=== PATIENT | female | born 2000 | race Hispanic/Latino ===

== ENCOUNTER 2025-02-18 17:35 | Emergency (ER) | payer BC ==
[~2025-02-18] VITALS: Ht 154.9 cm; Wt 63.5 kg
--- NOTE | 2025-02-18 17:48 | ERN ---
General Chief Complaint: Vaginal Bleeding Stated Complaint: 7WKS BLEEDING Time Seen by MD: 17:37 Time Seen by Midlevel: 17:37 Source: patient History of Present Illness Initial Comments The patient is a 24-year-old female with no significant past medical history presenting to the emergency department with light vaginal spotting that started approximately two days ago. The patient reports approximately seven weeks at this time based on her last menstrual period. She is followed by Dr. Joaquín Walsh and has an ultrasound scheduled in a couple of days. She states that for the last 48 hours there has been light vaginal bleeding with wiping. No large clots or heavy flow has been reported. Denies any abdominal cramping, dysuria, or any other symptoms at this time. Patient is a A0. Allergies: Coded Allergies: No Known Drug Allergies (Unverified Allergy, Unknown, 02/18/25) Past Medical History Past Medical History: No Pertinent History Past Surgical History: None Female( History) LMP: Dec 22, 2024 : 1 Para: 0 ROS Dictation CONSTITUTIONAL: Negative except for HPI HEAD/FACE: Negative except for HPI EENT: Negative except for HPI RESPIRATORY: Negative except for HPI GASTROINTESTINAL/ABDOMINAL: Negative except for HPI GENITOURINARY: Negative except for HPI MUSCULOSKELETAL: Negative except for HPI INTEGUMENTARY: Negative except for HPI NEUROLOGICAL/PSYCH: Negative except for HPI HEMATOLOGIC/LYMPHATIC: Negative except for HPI All Systems Negative, Except as noted above. 13 point review of systems assessed and all negative except for above. Physical Exam Physical Exam Dictation Vital Signs reviewed General Appearance: Alert, oriented x 3, no acute distress, well developed, nourished. Head and Face: non-traumatic. Eyes: PERRL, pink conjunctivas, eyelid no trauma, anterior chamber with arcus senilis. Ears: Pinnas intact and no signs of trauma or erythema ear canals clear and no discharge TM no erythema Nose: No discharge, no bleeding. Oropharynx: Mouth normal, tongue pink, pharynx clear,no erythema, tonsils no exudates, no abscesses noted, mucous membrane moist Neck: Supple, non-tender, no thyromegaly, no masses, no JVD, no bruits Breast:Deferred Chest:No tenderness, no crepitus, no paradoxical movement, no retractions Lungs:Clear, well-ventilated, symmetric, no rales, no wheezing, no rhonchi, no stridor, good breath sounds bilaterally Heart: Regular rate, regular rhythm, no murmur, no gallops Vascular: no peripheral edema, Abdomen: Soft, positive bowel sounds, nondistended, no guarding, nontender, no rebound, no masses no hepatomegaly, no splenomegaly, no Awad's sign, no hernias. Rectal: Deferred Genital: Deferred Neurological: Normal speech, motor function intact, sensory function intact Musculoskeletal: Neck nontender, full range of motion, back nontender, full range of motion, Extremities: nontender, full range of motion Skin: Color pink, dry, no turgor, no rash, no lacerations, no abrasions, no contusions. Lymphatic: Deferred Results Laboratory and Microbiology Lab and Micro Result Laboratory Tests Test 02/18/25 17:50 02/18/25 18:33 Urine Color COLORLESS (YELLOW) Urine Appearance CLEAR (CLEAR) Urine pH 6.0 (5.0-8.0) Urine Specific [place] 1.009 (1.001-1.031) Urine Protein NEGATIVE mg/dL (NEGATIVE) Urine Glucose (UA) NEGATIVE mg/dL (NEGATIVE) Urine Ketones NEGATIVE mg/dL (NEGATIVE) Urine Occult Blood NEGATIVE (NEGATIVE) Urine Nitrate NEGATIVE (NEGATIVE) Urine Bilirubin NEGATIVE mg/dL (NEGATIVE) Urine Urobilinogen 0.2 mg/dL (0.2-1.0) Urine Leukocyte Esterase NEGATIVE Mikey/uL White Blood Count 8.9 K/uL (4.8-10.8) Red Blood Count 4.04 MIL/uL (4.00-5.50) Hemoglobin 11.8 g/dL (12.0-16.0) L Hematocrit 34.6 % (36-48) L Mean Corpuscular Volume 85.6 fL (79-99) Mean Corpuscular Hemoglobin 29.2 pg (27.0-33.0) Mean Corpuscular Hemoglobin Concent 34.1 g/dL (32.0-36.0) Red Cell Distribution Width 12.5 % (11.0-15.5) Platelet Count 206 K/uL (130-400) Mean Platelet Volume 9.7 fL (7.5-10.5) Immature Granulocyte % (Auto) 0.4 % (0-1) Neutrophils (%) (Auto) 68.8 % (40.0-77.0) Lymphocytes (%) (Auto) 19.9 % (21.0-51.0) L Monocytes (%) (Auto) 9.3 % (3.0-13.0) Eosinophils (%) (Auto) 1.0 % (0.0-8.0) Basophils (%) (Auto) 0.6 % (0.0-5.0) Neutrophils # (Auto) 6.1 K/uL (1.8-7.7) Lymphocytes # (Auto) 1.8 K/uL (1.0-4.8) Monocytes # (Auto) 0.8 K/uL (0.1-1.0) Eosinophils # (Auto) 0.09 K/uL (0.00-0.70) Basophils # (Auto) 0.05 K/uL (0.00-0.20) Absolute Immature Granulocyte (auto 0.04 K/uL (0-1) Nucleated Red Blood Cells 0.0 % (0.0-0.19) Sodium Level 138 mmol/L (136-145) Potassium Level 3.7 mmol/L (3.5-5.1) Chloride Level 102 mmol/L (101-111) Carbon Dioxide Level 24 mmol/L (21-32) Blood Urea Nitrogen 9 mg/dL (7-18) Creatinine 0.4 mg/dL (0.5-1.0) L Glomerular Filtration Rate Calc 143 mL/min (>90) Random Glucose 93 mg/dL (70-105) Total Calcium 8.9 mg/dL (8.5-10.1) Human Chorionic Gonadotropin, Quant 439229 mIU/mL (0-5) H Labs Reviewed?: Yes MDM MDM: Differential diagnosis: Subchorionic hemorrhage, implantation bleeding, 1st trimester There are no social concerns with this patient. Prescription drug management Prescriptions will include: None Medical management and examination interpretation discussions were had by me with other qualified healthcare professionals as indicated for the patient's care. ED Course Orders Procedure Category Date Status Time Cbc With Differential LAB 02/18/25 Complete 17:45 Basic Metabolic Panel LAB 02/18/25 Complete 17:45 Hcg,Quantitative LAB 02/18/25 Complete 17:45 Urinalysis Profile LAB 02/18/25 Complete 17:45 Us Ob <14 Weeks US 02/18/25 Resulted 17:45 Vital Signs Date Time Temp Pulse Resp B/P (MAP) Pulse Ox O2 Delivery O2 Flow Rate FiO2 02/18/25 18:50 99.0 85 18 109/76 98 Room Air* 0 21 02/18/25 17:40 99.3 95 20 106/74 98 Room Air [facility] [address] [place] [address] IMAGING REPORT Signed PATIENT: GENO PIZARRO MR#: [id number] : 2000 SEX: F AGE: 24 LOCATION: [facility] ORDER 44 STATUS: REG REPORT#: [id number] SERVICE 44 REASON: vaginal bleeding during approx 7 weeks ORDERING PHYSICIAN: DANE HUIZAR PROCEDURE: OB <14 - US OB <14 WEEKS ULTRASOUND OB LESS THAN 14 WEEKS ULTRASOUND ABD VASCULAR LIMITED INDICATION: Pelvic pain COMPARISONS: None TECHNIQUE: Transabdominal real-time sonographic images were acquired earlier, and subsequently made available for review. FINDINGS: The uterus measures 10.7 x 6.5 x 6.2 cm. The uterus is normal in echotexture and contour. Dichorionic diamniotic amniotic twin intrauterine gestation corresponds to sonographic gestational age of 7 weeks 4 days for both twin A and twin B based on crown-rump length of 1.3 cm, similar for both twin A and twin B Trace abnormal subchorionic hypoechoic area demonstrated. heart rate = 167 BPM for both twin A and twin B. The right ovary measures 3.2 x 1.7 x 3.0 cm. The right ovary is normal in size, shape and echogenicity. No right adnexal masses demonstrated. Color Doppler flow is normal throughout the right ovary. Spectral Doppler analysis demonstrates a normal waveform pattern. The left ovary measures 2.0 x 2.4 x 1.5 cm. The left ovary is normal in size, shape and echogenicity. No left adnexal masses demonstrated. Color Doppler flow is normal throughout the left ovary. Spectral Doppler analysis demonstrates a normal waveform pattern. No free pelvic fluid demonstrated. IMPRESSION: 1. Twin dichorionic diamnionic live intrauterine gestations corresponding to sonographic gestational age of 7 weeks 4 days based on crown-rump length, and with heart rate = 167 BPM for both. 2. Trace subchorionic hemorrhage. 3. SON for twin A = 10/01/2025 and twin B = 10/03/2025. DICTATED BY: KADIE BROWN MD DATE: 02/18/25 183 ELECTRONICALLY SIGNED BY: KADIE BROWN MD DATE: 02/18/25 184 DX & DISP Disposition: Discharge Departure Impression: Primary Impression: First trimester Additional Impressions: Subchorionic hemorrhage in first trimester, Dichorionic diamniotic twin Condition: Stable Additional Instructions: Your blood work today is unremarkable. Your urinalysis does not show any evidence of infection. Your hCG quant level is 171,[phone]. Your pelvic ultrasound reveals twin chorionic diamniotic live intrauterine gestations corresponding to a sonographic gestational age of seven weeks and four days with positive heart tones. There is a trace subchorionic hemorrhage which could explain your light vaginal bleeding while wiping. I recommend bedrest until you can be seen by her OBGYN. When you return to work I do not want you lifting anything over 5 lb. Time of Disposition: 19:24 I have reviewed the case, and I agree with, Diagnosis and Plan I performed the substantive portion of the visit. I have reviewed and personally made and approve the management plan that is documented in the note by myself or the [facility]. I acknowledge for responsibility for the patient's management plan. DANE HUIZAR February 18, 2025 17:48
[2025-02-18 18:00] LABS: APPEARANCE,URINE CLEAR (CLEAR); BILIRUBIN,URINE NEGATIVE (NEGATIVE); COLOR,URINE COLORLESS (YELLOW); GLUCOSE, URINE (UA) NEGATIVE (NEGATIVE); KETONES,URINE NEGATIVE (NEGATIVE); LEUKOCYTE ESTERASE ,URINE NEGATIVE Leu/uL (NEGATIVE); NITRATE,URINE NEGATIVE (NEGATIVE); OCCULT BLOOD,URINE NEGATIVE (NEGATIVE); PROTEIN,URINE NEGATIVE (NEGATIVE); UROBILINOGEN,URINE 0.2 mg/dL (0.2-1.0)
[2025-02-18 18:04] LABS: ADD UA MICROSCOPIC NO
--- NOTE | 2025-02-18 18:40 | HMCIMG ---
ULTRASOUND OB LESS THAN 14 WEEKS ULTRASOUND ABD VASCULAR LIMITED INDICATION: Pelvic pain COMPARISONS: None TECHNIQUE: Transabdominal real-time sonographic images were acquired earlier, and subsequently made available for review. FINDINGS: The uterus measures 10.7 x 6.5 x 6.2 cm. The uterus is normal in echotexture and contour. Dichorionic diamniotic amniotic twin intrauterine gestation corresponds to sonographic gestational age of 7 weeks 4 days for both twin A and twin B based on crown-rump length of 1.3 cm, similar for both twin A and twin B Trace abnormal subchorionic hypoechoic area demonstrated. heart rate = 167 BPM for both twin A and twin B. The right ovary measures 3.2 x 1.7 x 3.0 cm. The right ovary is normal in size, shape and echogenicity. No right adnexal masses demonstrated. Color Doppler flow is normal throughout the right ovary. Spectral Doppler analysis demonstrates a normal waveform pattern. The left ovary measures 2.0 x 2.4 x 1.5 cm. The left ovary is normal in size, shape and echogenicity. No left adnexal masses demonstrated. Color Doppler flow is normal throughout the left ovary. Spectral Doppler analysis demonstrates a normal waveform pattern. No free pelvic fluid demonstrated. IMPRESSION: 1. Twin dichorionic diamnionic live intrauterine gestations corresponding to sonographic gestational age of 7 weeks 4 days based on crown-rump length, and with heart rate = 167 BPM for both. 2. Trace subchorionic hemorrhage. 3. SON for twin A = 10/01/2025 and twin B = 10/03/2025.
[2025-02-18 18:41] LABS: BASOPHILS # (AUTO) 0.05 K/uL (0.00-0.20); BASOPHILS % (AUTO) 0.6 % (0.0-5.0); EOSINOPHILS # (AUTO) 0.09 K/uL (0.00-0.70); HEMATOCRIT 34.6 % (36-48); IMMATURE GRANULOCYTE ABSOLUTE 0.04 K/uL (0-1); LYMPHOCYTES # (AUTO) 1.8 K/uL (1.0-4.8); LYMPHOCYTES % (AUTO) 19.9 % (21.0-51.0); MEAN CORPUSCULAR HEMOGLOBIN 29.2 pg (27.0-33.0); MEAN CORPUSCULAR HGB CONC 34.1 g/dL (32.0-36.0); MEAN CORPUSCULAR VOLUME 85.6 fL (79-99); MONOCYTES # (AUTO) 0.8 K/uL (0.1-1.0); MONOCYTES % (AUTO) 9.3 % (3.0-13.0); NEUTROPHILS # (AUTO) 6.1 K/uL (1.8-7.7); NEUTROPHILS % (AUTO) 68.8 % (40.0-77.0); PLATELET COUNT (AUTO) 206 K/uL (130-400); RED BLOOD CELL COUNT(AUTO) 4.04 MIL/uL (4.00-5.50); RED CELL DISTRIBUTION WIDTH 12.5 % (11.0-15.5); WHITE BLOOD COUNT (AUTO) 8.9 K/uL (4.8-10.8)
[2025-02-18 18:50] VITALS: BP 109/76; PULSE 85; RESP 18; TEMP 98.9; O2SAT 98
[2025-02-18 18:50] LABS: CREATININE 0.4 mg/dL (0.5-1.0); POTASSIUM 3.7 mmol/L (3.5-5.1)
== END 2025-02-18 19:31 | disposition home or self-care (01) ==
LOC: EDH 17:35
DX: O20.8 Other hemorrhage in early pregnancy (principal); O30.041 Twin pregnancy, dichorionic/diamniotic, first trimester; R10.2 Pelvic and perineal pain; Z3A.01 Less than 8 weeks gestation of pregnancy
CPT/HCPCS: 36415; 76801; 80048; 81003; 84702; 85025; 99284